=== PATIENT | female | born 1995 | race African-American/Black ===

== ENCOUNTER 2017-07-07 13:09 | Observation (INO) | payer MEDICAID ==
[~2017-07-07] VITALS: Ht 162.6 cm; Wt 92.1 kg
[2017-07-07] MEDS ORDERED: LACTATED RINGERS 1,000 ML IV SCH (14:00)
[2017-07-07] MEDS ORDERED: ACETAMINOPHEN 500MG TABLET PO ONE (14:00)
[2017-07-07 14:53] LABS: CLARITY URINE CLEAR (CLEAR); COLOR URINE YELLOW (YELLOW); GLUCOSE URINE NEGATIVE (NEGATIVE); KETONES URINE NEGATIVE (NEGATIVE); LEUKOCYTE ESTERASE URINE 2+ (NEGATIVE); NITRITE URINE NEGATIVE (NEGATIVE); OCCULT BLOOD URINE NEGATIVE (NEGATIVE); PH URINE 6.5 (4.5-8.0); PROTEIN URINE NEGATIVE (NEGATIVE); SPECIFIC GRAVITY URINE 1.007 (1.005-1.030); UROBILINOGEN URINE 0.2 E.U./dL (0.2-1.0)
[2017-07-07 14:57] LABS: BASOPHILS % 0.3 % (0.0-2.0); EOSINOPHILS % 0.4 % (0.0-5.0); HEMATOCRIT. 35.2 % (36.0-48.0); LYMPHOCYTES % 15.8 % (20.0-50.0); MEAN CORPUSCULAR HEMOGLOBIN 28.8 pg (28.0-32.0); MEAN CORPUSCULAR VOLUME 84.2 fL (81.0-99.0); MEAN PLATELET VOLUME 8.1 fl (7.4-10.4); MONOCYTES % 8.6 % (2.0-8.0); NEUTROPHILS % 74.9 % (40.0-76.0); PLATELET 237 x1000/uL (130-400); RED BLOOD CELL COUNT 4.18 mill/uL (4.2-5.4); RED CELL DISTRIBUTION WIDTH 12.9 % (11.6-14.6)
[2017-07-07 15:01] LABS: CHLORIDE 106 mEq/L (98-107)
[2017-07-07 15:03] LABS: D-DIMER 2.21 mg/L FEU (<0.50); PARTIAL THROMBOPLASTIN TIME 28.8 sec (24.0-34.0); PROTHROMBIN TIME 10.3 sec
[2017-07-07 15:04] LABS: CARBON DIOXIDE 24 mEq/L (21-32)
== END 2017-07-07 16:26 | disposition home or self-care (01) ==
LOC: L&D 13:09
PROVIDERS: ADMIT Obstetrics & Gynecology; ATTEND Obstetrics & Gynecology
DX: O26.893 Other specified pregnancy related conditions, third trimester (principal); R10.2 Pelvic and perineal pain; Z3A.31 31 weeks gestation of pregnancy
CPT/HCPCS: 36415; 80053; 81001; 84550; 85025; 85379; 85384; 85610; 85730; 96360; 96361; 99281; G0378; J7120